=== PATIENT | male | born 1955 | race African-American/Black ===

== ENCOUNTER 2016-06-27 08:40 | Emergency (ER) | payer MEDICARE, OTHER ==
[~2016-06-27 08:40] MED LIST: /ACETCOD3T PO; /ADVA50050 INH; /PANT40TA OR; /SUCR1TA; /SUCR1TA OR; /TAMS4CA PO; /TIOT18INH INH; ACET65TA OR; ALBU17IN2 INH; ALBU83IN INH; AMBI10TA PO; AMMO12CR4 TOP; AMMO12LO TOP; ATIV1TAB10 PO; ATOR40TA PO; AZIT500T2 PO; BACITAB PO; BACITAB3 PO; BUPR15TA PO; BUSP5TA PO; CARA1TAB2 PO; CARD2TAB; CARD2TAB OR; CEFD1CAP8 PO; CIPR500T4; CIPR500T89 PO; COLA100C PO; COLA100C2 OR; COMBAER6 INH; COMBVENT; COZA25TA8 OR; DICY1CAP8 PO; DIET; DILA2TAB; DOCU100C PO; DOCU10CA PO; DRIS50002 PO; EFFE75CA75 PO; FINA5TAB2 PO; FOLI1TAB2 PO; GABA300C2 PO; HYDR1TAB97 PO; HYDR5CR TOP; HYDROCORTISONE CREAM TOP; IBUP600T OR; INSULANT SC; INSUR SC; LANTINJ4 SC; LIDO5DIS TOP; LIDO5DIS36 TD; LIPI20TA PO; LORA1TAB PO; LOSA25TA8 PO; LOVE1INJ SC; MAG400TA PO; MAGN400T5 PO; METO25TA74 PO; METO5TAB2 PO; MIRA0.5T PO; MIRA3350 PO; MORP2SY IV; MORP4SYR IV; MUCI600T34 PO; NAPR500T2 PO; NEUR400C PO; NEUR600T PO; NITR1PA TOP; NOVOINJ2 SC; NOVOLOG100 MG/ML SC; OXAZ15CA PO; OXYC1TAB23 PO; PANGESTYME; PERCOCET PO; PLAV75TA PO; PLAV75TA2 OR; POTA20TA OR; PRED10PA2 PO; PRIL20CA PO; PROV90AE; RANI15TA PO; REGL10TA6 IV; REQU0.5T PO; ROBA500T; SIMV10TA2 PO; SLOW MAGNESIUM PO; SLOWTAB PO; SLOWTAB2 PO; SPIR1CAP INH; SYMB16INH INH; SYMB80AE IN; SYMB80AE INH; TERB1CRE8 TOP; THIA100T PO; TOPR25TA PO; TRAM50TA2 OR; Thiamine Hcl PO; Tylenol with Codeine PO; VENL75TA2 PO; VITA-193 PO; VITA100072 PO; VITAPRTA PO; WELLTAB4 PO; ZANT150T OR; ZANT150T PO; ZANTTAB PO; ZOCO5TAB OR; ZOFR4SOL IV; ZOFR4TAB3 PO; [UNRECOGNIZED DRUG - CODE] IC; [UNRECOGNIZED DRUG - OTHER] OR; percocet OR; tylenol #3; zenpep OR
== END 2016-06-27 09:47 | disposition left against medical advice (07) ==
LOC: M ED 08:40
DX: Z91.81 History of falling (principal); Z53.29 Procedure and treatment not carried out because of patient's decision for other reasons

== ENCOUNTER 2016-08-02 10:45 | Emergency (ER) | payer MEDICARE, OTHER ==
--- NOTE | 2016-08-02 13:13 | REP ---
Left hand series: Four views. History: Trauma. Findings: Four views of the left hand show overall normal mineralization. No fracture or subluxation is seen. Impression: No fracture noted. Signed by Pipo Wong MD 08/02/2016 03:05 P
--- NOTE | 2016-08-02 13:16 | EDDOCDS ---
Nurse's Notes [facility] Name: Jude Parikh Age: 61 yrs Sex: Male : 1955 Arrival Date: 08/02/2016 Time: 10:45 Bed 13 Private MD: DEVON Boyd Diagnosis: Contusion of left hand Presentation: 08/02 10:58 Presenting complaint: Patient states: fell on sidewalk on June 27 here while at [facility] hs1 and left AMA. Patient returns for hand pain and difficulty grabbing in left hand and continued pain. Adult Sepsis Screening: The patient does not have new or worsening altered mentation. Patient's respiratory rate is less than 22. Systolic blood pressure is greater than 100. Patient has a qSOFA score of 0- Negative Sepsis Screen. Suicide/Homicide risk assessment- the patient denies having any suicidal and/or homicidal ideations and does not present with any other emotional, behavioral or mental health complaints. Status: Patient is not a social services coordinator or dependent. Transition of care: patient was not received from another setting of care. 10:58 Acuity: HOLLIS Level 4 hs1 10:58 Method Of Arrival: Walkin/Carried/Asstd hs1 Triage Assessment: 11:03 General: Appears in no apparent distress, comfortable, Behavior is appropriate for age, hs1 cooperative. Pain: Location: left hand Pain currently is 8 out of 10 on a pain scale. HIV screening NA for this visit Offered previously. Musculoskeletal: Range of motion intact in all extremities. Historical: - Allergies: Aspirin (Upset stomach); - Home Meds: 1. albuterol sulfate 2.5 mg /3 mL (0.083 %) Inhl nebu bid 2. atorvastatin 40 mg oral tab once daily 3. BuSpar 5 mg Oral tab 1 tab 3 times per day 4. Combivent 18-103 mcg/actuation Inhl aero 5. dicyclomine 10 mg Oral cap bid 6. Effexor XR 225mg Oral once daily 7. Hydrocortisone Topical as needed 8. Lidoderm 5 %(700 mg/patch) Topical ptmd 1 patch once daily 9. losartan 25 mg oral tab once daily 10. magnesium oxide 400 mg Oral tab 11. Plavix 75 mg Oral tab once daily 12. Miralax 17 gram/dose Oral powd 13. thiamine HCl 100 mg Oral tab daily 14. Vitamin B-12 1,000 mcg Oral tab daily 15. spiriva twice a day 16. Symbicort 2 puffs BID 17. metoclopramide HCl 5 mg Oral tab 18. pravastatin 20 mg oral tab 1 tab once daily 19. metoprolol tartrate 50 mg Oral tab once daily - PMHx: Anxiety; Colitis; COPD; Hypertension; Diabetes - NIDDM: controlled; Pancreatitis; CVA; - PSHx: Lumbar Fusion; whipple procedure; Hernia repair- Incisional; - Social history: Smoking status: Patient states was never smoker of tobacco. No barriers to communication noted, The patient speaks fluent Haitian, Speaks appropriately for age. - Family history: No immediate family members are acutely ill. - : The pt / caregiver states he / she is on anticoagulants: Plavix. Home medication list is obtained from the patient. - Exposure Risk Screening:: None identified. Screenin:13 Screening information is obtained from the patient. Fall risk: No risks identified. mb9 Assistance ADL's: requires no assistance with activities of daily living. Abuse/DV Screen: The patient / caregiver reports he/she is: not in a situation that causes fear, pain or injury. Nutritional screening: No deficits noted. Advance Directives: There is no active DNR order. home support is adequate. Assessment: 12:18 General: Appears in no apparent distress, Behavior is appropriate for age, cooperative. mb9 Pain: Location: anterior aspect of left shoulder and left antecubital area and left hand Pain currently is 8 out of 10 on a pain scale. Quality of pain is described as aching. Neurological: Level of Consciousness is awake, alert, Oriented to person, place, time, Sample Stitcher are weak on left Speech is normal, Facial symmetry appears normal, Reports numbness pt reports numbness to left hand. pt reports the numbness is positional.. Musculoskeletal: Circulation, motion, and sensation intact Range of motion. 13:13 Reassessment: Patient appears in no apparent distress at this time. General: Appears in mb9 no apparent distress, Behavior is appropriate for age, cooperative. Pain: Location: left hand Pain currently is 8 out of 10 on a pain scale. Vital Signs: 10:46 BP 115 / 70 RA Sitting (auto/reg); Pulse 109; Resp 18; Temp 97.0(T); Pulse Ox 100% ; jrd Weight 58.51 kg (R); Height 5 ft. 11 in. (180.34 cm) (R); Pain 8/10; 13:13 BP 121 / 83; Pulse 95; Resp 17; Temp 97.6(O); Pulse Ox 99% ; mb9 10:46 Body Mass Index 17.99 (58.51 kg, 180.34 cm) [facility] Vitals: 10:46 Log In Time: August 02, 2016 at 10:35. d ED Course: 10:45 Patient visited by Omar Martinez PCA. jrd 10:45 Patient moved to Waiting jrd 10:46 [facility] is Private Physician. jrd 10:47 Patient visited by Omra Martinez PCA. jrd 10:48 Patient moved to Pre RCE jrd 10:59 Triage Initiated hs1 12:05 Patient moved to 13 mlb1 12:18 Patient visited by Babak Galvan RN. mb9 12:18 Akil Negron FNP [facility]. ke 12:18 Patient visited by Akil Negron FNP. ke 12:18 Patient visited by Akil Negron FNP. ke 12:42 Patient visited by Akil Negron FNP. ke 13:00 DEVON Boyd is Referral Physician. ke 13:13 The patient / caregiver is instructed regarding the plan of care and ED course. mb9 13:13 No IV's were initiated during this patient's visit. No procedures done that require mb9 assistance. Order Results: There are currently no results for this order. Outcome: 13:00 Discharge ordered by Provider. ke 13:13 Discharge Assessment: Patient awake, alert and oriented x 3. No cognitive and/or mb9 functional deficits noted. Patient verbalized understanding of disposition instructions. patient administered narcotics - no. The following High Risk Discharge criteria are identified: None. Condition: good Condition: stable Condition: improved. No special radiology studies were completed. Property :Personal belongings accompany Pt. 13:15 Patient left the ED. mb9 Signatures: Akil Negron FNP FNP ke Barney, Michael B, RN RN mlb1 Felecia Arredondo RN RN hs1 Omar Martinez PCA WOOD MACHINE CARVER jrd Babak Galvan RN RN mb9 MTDD
--- NOTE | 2016-08-02 13:16 | EDDOCDS ---
Physician Documentation [facility] Name: Jude Parikh Age: 61 yrs Sex: Male : 1955 Arrival Date: 08/02/2016 Time: 10:45 Bed 13 Private MD: DEVON Boyd Disposition: 08/02/16 13:00 Discharged to Home/Self Care. Impression: Contusion of left hand. - Condition is Stable. - Discharge Instructions: Hand Contusion. - Medication Reconciliation, Local Pharmacy Hours form. - Follow up: DEVON Boyd; When: As needed; Reason: Continuance of care. - Problem is an ongoing problem. - Symptoms are unchanged. Historical: - Allergies: Aspirin (Upset stomach); - Home Meds: 1. albuterol sulfate 2.5 mg /3 mL (0.083 %) Inhl nebu bid 2. atorvastatin 40 mg oral tab once daily 3. BuSpar 5 mg Oral tab 1 tab 3 times per day 4. Combivent 18-103 mcg/actuation Inhl aero 5. dicyclomine 10 mg Oral cap bid 6. Effexor XR 225mg Oral once daily 7. Hydrocortisone Topical as needed 8. Lidoderm 5 %(700 mg/patch) Topical ptmd 1 patch once daily 9. losartan 25 mg oral tab once daily 10. magnesium oxide 400 mg Oral tab 11. Plavix 75 mg Oral tab once daily 12. Miralax 17 gram/dose Oral powd 13. thiamine HCl 100 mg Oral tab daily 14. Vitamin B-12 1,000 mcg Oral tab daily 15. spiriva twice a day 16. Symbicort 2 puffs BID 17. metoclopramide HCl 5 mg Oral tab 18. pravastatin 20 mg oral tab 1 tab once daily 19. metoprolol tartrate 50 mg Oral tab once daily - PMHx: Anxiety; Colitis; COPD; Hypertension; Diabetes - NIDDM: controlled; Pancreatitis; CVA; - PSHx: Lumbar Fusion; whipple procedure; Hernia repair- Incisional; - Social history: Smoking status: Patient states was never smoker of tobacco. No barriers to communication noted, The patient speaks fluent Persian, Speaks appropriately for age. - Family history: No immediate family members are acutely ill. - : The pt / caregiver states he / she is on anticoagulants: Plavix. Home medication list is obtained from the patient. - Exposure Risk Screening:: None identified. Vital Signs: 08/02 10:46 BP 115 / 70 RA Sitting (auto/reg); Pulse 109; Resp 18; Temp 97.0(T); Pulse Ox 100% ; jrd Weight 58.51 kg / 128.99 lbs (R); Height 5 ft. 11 in. (180.34 cm) (R); Pain 8/10; 13:13 BP 121 / 83; Pulse 95; Resp 17; Temp 97.6(O); Pulse Ox 99% ; mb9 10:46 Body Mass Index 17.99 (58.51 kg, 180.34 cm) jrd MDM: 12:21 Hand, Complete Ordered. EDMS Signatures: Dispatcher [employer] EDMS Akil Negron, Felecia Farris RN RN hs1 Babak GalvanRN RN mb9 SUDHA
--- NOTE | 2016-08-04 14:16 | EDDOCDS ---
Physician Documentation [facility] Name: Jude Parikh Age: 61 yrs Sex: Male : 1955 Arrival Date: 08/02/2016 Time: 10:45 Bed 13 Private MD: DEVON Boyd Disposition: 08/02/16 13:00 Discharged to Home/Self Care. Impression: Contusion of left hand. - Condition is Stable. - Discharge Instructions: Hand Contusion. - Medication Reconciliation, Local Pharmacy Hours form. - Follow up: DEVON Boyd; When: As needed; Reason: Continuance of care. - Problem is an ongoing problem. - Symptoms are unchanged. Historical: - Allergies: Aspirin (Upset stomach); - Home Meds: 1. albuterol sulfate 2.5 mg /3 mL (0.083 %) Inhl nebu bid 2. atorvastatin 40 mg oral tab once daily 3. BuSpar 5 mg Oral tab 1 tab 3 times per day 4. Combivent 18-103 mcg/actuation Inhl aero 5. dicyclomine 10 mg Oral cap bid 6. Effexor XR 225mg Oral once daily 7. Hydrocortisone Topical as needed 8. Lidoderm 5 %(700 mg/patch) Topical ptmd 1 patch once daily 9. losartan 25 mg oral tab once daily 10. magnesium oxide 400 mg Oral tab 11. Plavix 75 mg Oral tab once daily 12. Miralax 17 gram/dose Oral powd 13. thiamine HCl 100 mg Oral tab daily 14. Vitamin B-12 1,000 mcg Oral tab daily 15. spiriva twice a day 16. Symbicort 2 puffs BID 17. metoclopramide HCl 5 mg Oral tab 18. pravastatin 20 mg oral tab 1 tab once daily 19. metoprolol tartrate 50 mg Oral tab once daily - PMHx: Anxiety; Colitis; COPD; Hypertension; Diabetes - NIDDM: controlled; Pancreatitis; CVA; - PSHx: Lumbar Fusion; whipple procedure; Hernia repair- Incisional; - Social history: Smoking status: Patient states was never smoker of tobacco. No barriers to communication noted, The patient speaks fluent Amharic, Speaks appropriately for age. - Family history: No immediate family members are acutely ill. - : The pt / caregiver states he / she is on anticoagulants: Plavix. Home medication list is obtained from the patient. - Exposure Risk Screening:: None identified. Vital Signs: 08/02 10:46 BP 115 / 70 RA Sitting (auto/reg); Pulse 109; Resp 18; Temp 97.0(T); Pulse Ox 100% ; jrd Weight 58.51 kg / 128.99 lbs (R); Height 5 ft. 11 in. (180.34 cm) (R); Pain 8/10; 13:13 BP 121 / 83; Pulse 95; Resp 17; Temp 97.6(O); Pulse Ox 99% ; mb9 10:46 Body Mass Index 17.99 (58.51 kg, 180.34 cm) jrd MDM: 12:21 Hand, Complete Ordered. EDMS 14:35 [facility] [place] Agreement was scanned into [employer] and attached to record. 08/03 11:06 T-Sheet-- Draft Copy was scanned into [employer] and attached to record. gb Signatures: Dispatcher [employer] EDMS Dara Cyr, Reg Reg gb Rebekah Delgado, Reg Reg lg Akil Negron, JACK PRIZER JACK PRIZER Felecia Arredondo RN RN hs1 Babak GalvanRN RN mb9 The chart was reviewed and I authenticate all verbal orders and agree with the evaluation and treatment provided.Attachments: 08/02 14:35 [facility] [place] Agreement 08/03 11:06 T-Sheet-- Draft Copy gb Chart Complete MTDD
--- NOTE | 2016-08-04 14:16 | EDDOCDS ---
Physician Documentation [facility] Name: Jude Parikh Age: 61 yrs Sex: Male : 1955 Arrival Date: 08/02/2016 Time: 10:45 Bed 13 Private MD: DEVON Boyd Disposition: 08/02/16 13:00 Discharged to Home/Self Care. Impression: Contusion of left hand. - Condition is Stable. - Discharge Instructions: Hand Contusion. - Medication Reconciliation, Local Pharmacy Hours form. - Follow up: DEVON Boyd; When: As needed; Reason: Continuance of care. - Problem is an ongoing problem. - Symptoms are unchanged. Historical: - Allergies: Aspirin (Upset stomach); - Home Meds: 1. albuterol sulfate 2.5 mg /3 mL (0.083 %) Inhl nebu bid 2. atorvastatin 40 mg oral tab once daily 3. BuSpar 5 mg Oral tab 1 tab 3 times per day 4. Combivent 18-103 mcg/actuation Inhl aero 5. dicyclomine 10 mg Oral cap bid 6. Effexor XR 225mg Oral once daily 7. Hydrocortisone Topical as needed 8. Lidoderm 5 %(700 mg/patch) Topical ptmd 1 patch once daily 9. losartan 25 mg oral tab once daily 10. magnesium oxide 400 mg Oral tab 11. Plavix 75 mg Oral tab once daily 12. Miralax 17 gram/dose Oral powd 13. thiamine HCl 100 mg Oral tab daily 14. Vitamin B-12 1,000 mcg Oral tab daily 15. spiriva twice a day 16. Symbicort 2 puffs BID 17. metoclopramide HCl 5 mg Oral tab 18. pravastatin 20 mg oral tab 1 tab once daily 19. metoprolol tartrate 50 mg Oral tab once daily - PMHx: Anxiety; Colitis; COPD; Hypertension; Diabetes - NIDDM: controlled; Pancreatitis; CVA; - PSHx: Lumbar Fusion; whipple procedure; Hernia repair- Incisional; - Social history: Smoking status: Patient states was never smoker of tobacco. No barriers to communication noted, The patient speaks fluent Kiswahili, Speaks appropriately for age. - Family history: No immediate family members are acutely ill. - : The pt / caregiver states he / she is on anticoagulants: Plavix. Home medication list is obtained from the patient. - Exposure Risk Screening:: None identified. Vital Signs: 08/02 10:46 BP 115 / 70 RA Sitting (auto/reg); Pulse 109; Resp 18; Temp 97.0(T); Pulse Ox 100% ; jrd Weight 58.51 kg / 128.99 lbs (R); Height 5 ft. 11 in. (180.34 cm) (R); Pain 8/10; 13:13 BP 121 / 83; Pulse 95; Resp 17; Temp 97.6(O); Pulse Ox 99% ; mb9 10:46 Body Mass Index 17.99 (58.51 kg, 180.34 cm) jrd MDM: 12:21 Hand, Complete Ordered. EDMS 14:35 [facility] Payment Agreement was scanned into [email or web address] and attached to record. 08/03 11:06 T-Sheet-- Draft Copy was scanned into [email or web address] and attached to record. gb Signatures: Dispatcher [employer] EDMS Dara Cyr, Reg Reg gb Rebekah Delgado, Reg Reg lg Akil Negron, BUSINESS SERVICES ASSISTANT BUSINESS SERVICES ASSISTANT Felecia Arredondo RN RN hs1 Babak GalvanRN RN mb9 The chart was reviewed and I authenticate all verbal orders and agree with the evaluation and treatment provided.Attachments: 08/02 14:35 [facility] Payment Agreement 08/03 11:06 T-Sheet-- Draft Copy gb Chart Complete MTDD
--- NOTE | 2016-08-04 14:16 | EDDOCDS ---
Nurse's Notes [facility] Name: Jude Parikh Age: 61 yrs Sex: Male : 1955 Arrival Date: 08/02/2016 Time: 10:45 Bed 13 Private MD: DEVON Boyd Diagnosis: Contusion of left hand Presentation: 08/02 10:58 Presenting complaint: Patient states: fell on sidewalk on June 27 here while at [facility] hs1 and left AMA. Patient returns for hand pain and difficulty grabbing in left hand and continued pain. Adult Sepsis Screening: The patient does not have new or worsening altered mentation. Patient's respiratory rate is less than 22. Systolic blood pressure is greater than 100. Patient has a qSOFA score of 0- Negative Sepsis Screen. Suicide/Homicide risk assessment- the patient denies having any suicidal and/or homicidal ideations and does not present with any other emotional, behavioral or mental health complaints. Status: Patient is not a field service technician poultry or dependent. Transition of care: patient was not received from another setting of care. 10:58 Acuity: HOLLIS Level 4 hs1 10:58 Method Of Arrival: Walkin/Carried/Asstd hs1 Triage Assessment: 11:03 General: Appears in no apparent distress, comfortable, Behavior is appropriate for age, hs1 cooperative. Pain: Location: left hand Pain currently is 8 out of 10 on a pain scale. HIV screening NA for this visit Offered previously. Musculoskeletal: Range of motion intact in all extremities. Historical: - Allergies: Aspirin (Upset stomach); - Home Meds: 1. albuterol sulfate 2.5 mg /3 mL (0.083 %) Inhl nebu bid 2. atorvastatin 40 mg oral tab once daily 3. BuSpar 5 mg Oral tab 1 tab 3 times per day 4. Combivent 18-103 mcg/actuation Inhl aero 5. dicyclomine 10 mg Oral cap bid 6. Effexor XR 225mg Oral once daily 7. Hydrocortisone Topical as needed 8. Lidoderm 5 %(700 mg/patch) Topical ptmd 1 patch once daily 9. losartan 25 mg oral tab once daily 10. magnesium oxide 400 mg Oral tab 11. Plavix 75 mg Oral tab once daily 12. Miralax 17 gram/dose Oral powd 13. thiamine HCl 100 mg Oral tab daily 14. Vitamin B-12 1,000 mcg Oral tab daily 15. spiriva twice a day 16. Symbicort 2 puffs BID 17. metoclopramide HCl 5 mg Oral tab 18. pravastatin 20 mg oral tab 1 tab once daily 19. metoprolol tartrate 50 mg Oral tab once daily - PMHx: Anxiety; Colitis; COPD; Hypertension; Diabetes - NIDDM: controlled; Pancreatitis; CVA; - PSHx: Lumbar Fusion; whipple procedure; Hernia repair- Incisional; - Social history: Smoking status: Patient states was never smoker of tobacco. No barriers to communication noted, The patient speaks fluent Burkinan, Speaks appropriately for age. - Family history: No immediate family members are acutely ill. - : The pt / caregiver states he / she is on anticoagulants: Plavix. Home medication list is obtained from the patient. - Exposure Risk Screening:: None identified. Screenin:13 Screening information is obtained from the patient. Fall risk: No risks identified. mb9 Assistance ADL's: requires no assistance with activities of daily living. Abuse/DV Screen: The patient / caregiver reports he/she is: not in a situation that causes fear, pain or injury. Nutritional screening: No deficits noted. Advance Directives: There is no active DNR order. home support is adequate. Assessment: 12:18 General: Appears in no apparent distress, Behavior is appropriate for age, cooperative. mb9 Pain: Location: anterior aspect of left shoulder and left antecubital area and left hand Pain currently is 8 out of 10 on a pain scale. Quality of pain is described as aching. Neurological: Level of Consciousness is awake, alert, Oriented to person, place, time, Compressor Engineer are weak on left Speech is normal, Facial symmetry appears normal, Reports numbness pt reports numbness to left hand. pt reports the numbness is positional.. Musculoskeletal: Circulation, motion, and sensation intact Range of motion. 13:13 Reassessment: Patient appears in no apparent distress at this time. General: Appears in mb9 no apparent distress, Behavior is appropriate for age, cooperative. Pain: Location: left hand Pain currently is 8 out of 10 on a pain scale. Vital Signs: 10:46 BP 115 / 70 RA Sitting (auto/reg); Pulse 109; Resp 18; Temp 97.0(T); Pulse Ox 100% ; jrd Weight 58.51 kg (R); Height 5 ft. 11 in. (180.34 cm) (R); Pain 8/10; 13:13 BP 121 / 83; Pulse 95; Resp 17; Temp 97.6(O); Pulse Ox 99% ; mb9 10:46 Body Mass Index 17.99 (58.51 kg, 180.34 cm) [facility] Vitals: 10:46 Log In Time: August 02, 2016 at 10:35. d ED Course: 10:45 Patient visited by Omar Martinez PCA. jrd 10:45 Patient moved to Waiting jrd 10:46 DEVON Boyd is Private Physician. jrd 10:47 Patient visited by Omar Martinez PCA. jrd 10:48 Patient moved to Pre RCE jrd 10:59 Triage Initiated hs1 12:05 Patient moved to 13 mlb1 12:18 Patient visited by Babak Galvan RN. mb9 12:18 Akil Negron FNP is PHCP. ke 12:18 Patient visited by Akil Negron FNP. ke 12:18 Patient visited by Akil Negron FNP. ke 12:42 Patient visited by Akil Negron FNP. ke 13:00 DEVON Boyd is Referral Physician. ke 13:13 The patient / caregiver is instructed regarding the plan of care and ED course. mb9 13:13 No IV's were initiated during this patient's visit. No procedures done that require mb9 assistance. 13:48 Hand, Complete Returned. EDMS 14:35 [facility] Payment Agreement was scanned into [employer] and attached to record. 08/03 11:06 T-Sheet-- Draft Copy was scanned into [employer] and attached to record. gb Order Results: Radiology Order: Hand, Complete Test: Hand, Complete REASON FOR EXAMINATION: Trauma; Left hand series: Four views.; ; History: Trauma.; ; Findings: Four views of the left hand show overall normal mineralization. No; fracture or subluxation is seen.; ; Impression:; ; No fracture noted.; ; ; Signed by; Pipo Wong MD 08/02/2016 03:05 P; Outcome: 08/02 13:00 Discharge ordered by Provider. ke 13:13 Discharge Assessment: Patient awake, alert and oriented x 3. No cognitive and/or mb9 functional deficits noted. Patient verbalized understanding of disposition instructions. patient administered narcotics - no. The following High Risk Discharge criteria are identified: None. Condition: good Condition: stable Condition: improved. No special radiology studies were completed. Property :Personal belongings accompany Pt. 13:15 Patient left the ED. mb9 Signatures: Dispatcher [employer] EDMS Dara Cyr, Reg Reg gb Rebekah Delgado, Reg Reg lg Akil Negron, QUALITY REVIEW SPECIALIST QUALITY REVIEW SPECIALIST Babak Cochran, RN RN mlb1 Felecia Arredondo RN RN hs1 Omar Martinez, Babak Graham,RN RN mb9 Chart Complete MTDD
== END 2016-08-02 13:53 | disposition home or self-care (01) ==
LOC: M ED 10:45
DX: S60.222A Contusion of left hand, initial encounter (principal); W01.0XXA Fall on same level from slipping, tripping and stumbling without subsequent striking against object, initial encounter; Y92.238 Other place in hospital as the place of occurrence of the external cause; Y93.89 Activity, other specified; Y99.8 Other external cause status; I10 Essential (primary) hypertension; E11.9 Type 2 diabetes mellitus without complications; J44.9 Chronic obstructive pulmonary disease, unspecified; Z86.73 Personal history of transient ischemic attack (TIA), and cerebral infarction without residual deficits; F41.9 Anxiety disorder, unspecified; Z87.19 Personal history of other diseases of the digestive system; Z79.899 Other long term (current) drug therapy; Z79.01 Long term (current) use of anticoagulants; Z88.6 Allergy status to analgesic agent

== ENCOUNTER → 2016-08-02 | Outpatient (CLI) | payer MEDICARE, OTHER ==
[~2016-08-02] MED LIST changes: +HYDR-3713 PO; -HYDR1TAB97 PO; -PLAV75TA PO; +PLAV75TA38 PO; -PRIL20CA PO; +PRIL20CA9 PO
--- NOTE | 2016-08-02 11:10 | REP ---
CT of the chest without IV contrast. Rule: Comparison is the low-dose lung screening chest CT dated 03/02/2016 that identified a 6 mm noncalcified nodule in the left upper lobe. This nodule was not present on 11/02/2011. The area was obscured by an infiltrate 02/27/2015. On the study today this nodule is no longer present. There is focal parenchymal scarring in the location today. There are no other nodules or masses. There are no acute infiltrates or effusions. There are extensive bulla throughout the lung hawkins bilaterally compatible with bullous emphysema. There is no mediastinal adenopathy. There is no axillary adenopathy. In the absence of IV contrast the study is insensitive for hilar adenopathy. The unenhanced thoracic aorta is unremarkable. Cardiac size is normal. The visualized upper abdominal contents are unremarkable. There is no adrenal mass. Impression: The left upper lobe 6 mm nodule identified on the low-dose screening CT dated 03/02/2016 is no longer present. There is parenchymal scarring in the location today. This is on image 39. There is extensive bullous replacement of the lung parenchyma compatible with bullous emphysema, unchanged. There are no acute infiltrates or effusions. No other nodules or masses. No adenopathy. Signed by Vaughn Whitten MD 08/02/2016 11:02 A
== END ==
LOC: M RAD 10:27
PROVIDERS: ATTEND Internal Medicine Pulmonary Disease
DX: R91.8 Other nonspecific abnormal finding of lung field (principal)

== ENCOUNTER → 2016-08-07 | Outpatient (REF) | END | disposition home or self-care (01) | LOC: M LAB 12:16 | DX: Z02.89 Encounter for other administrative examinations (principal) ==